=== PATIENT | male | born 1955 | race Caucasian/White ===

== ENCOUNTER 2018-05-19 19:03 | Emergency (ER) | payer BC ==
--- NOTE | 2018-05-19 19:37 | EDPHY ---
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 - Personal History Current Tetanus/Diphtheria Vaccine: Unsure Current Tetanus Diphtheria and Acellular Pertussis (TDAP): Unsure - Medical/Surgical History Hx Asthma: No Hx Chronic Respiratory Disease: No Hx Diabetes: No Hx Cardiac Disease: No Hx Renal Disease: No Hx Cirrhosis: No Hx Alcoholism: No Hx HIV/AIDS: No Hx Splenectomy or Spleen Trauma: No Other PMH: prostate CA prostectomy - Social History Smoking Status: Never smoked <Erin Ryan - Last Filed: 05/19/18 19:57> <Bart Nelson - Last Filed: 05/19/18 21:02> Time Seen by Provider: 05/19/18 19:26 HPI/ROS: CHIEF COMPLAINT: Bruising in groin HISTORY OF PRESENT ILLNESS: 63-year-old male with prostate cancer presents with bruising and groin. Onset of intermittent sharp stabbing right groin pain 1 month ago. 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 Just prior to arrival, he noted that there was bruising under his scrotum. No change in pain and no swelling. He has a an appointment to see a vascular surgeon next week. He is currently traveling from [place] on vacation. REVIEW OF SYSTEMS: complete 10 point ROS reviewed and is negative except for the noted elements in the HPI (Erin Ryan) - Physical Exam Exam: General Appearance: Alert, pleasant Eyes: Pupils equal and round, no conjunctival pallor or injection ENT, Mouth: Mucous membranes moist Neck: Normal inspection Respiratory: Lungs are clear to auscultation Cardiovascular: Regular rate and rhythm Gastrointestinal: Abdomen is soft and nontender Genitourinary: Ecchymosis just posterior to the scrotum bilaterally, no tenderness Neurological: A&O, nonfocal, normal gait Skin: Warm and dry Extremities: Normal inspection Vascular: 2+ femoral pulses Psychiatric: Mood and affect normal (Erin Ryan) Constitutional: Initial Vital Signs Temperature (C) 36.8 C 05/19/18 19:05 Heart Rate 74 05/19/18 19:05 Respiratory Rate 16 05/19/18 19:05 Blood Pressure 152/96 H 05/19/18 19:05 O2 Sat (%) 96 05/19/18 19:05 O2 Delivery Mode Room Air Allergies/Adverse Reactions: No Known Allergies Allergy (Unverified 05/19/18 19:09) Home Medications: Medication Instructions Recorded LORazepam [Ativan (*)] 1 mg PO Q4-8PRN PRN #30 tab 05/19/18 Medical Decision Making <Erin Ryan - Last Filed: 05/19/18 19:57> - Diagnostics Imaging: Discussed imaging studies w/ call center manager Radiologist <Bart Nelson - Last Filed: 05/19/18 21:02> ED Course/Re-evaluation: This patient presents with ecchymosis in the groin after diagnosis of iliac artery aneurysm. Concern for aneurysm rupture. CTA of the abdomen with bilateral lower extremity runoff ordered. The patient was signed over to Dr. Nelson at shift change, CT pending. (Erin Ryan) Other Provider: 20:00 I assumed care of this patient at shift change. 20:[address] Logan, radiologist. CTA abdomen with run-off shows patient has a 5x4cm aneurysm in the common iliac artery. 20:40 Reassessed patient. Discussed imaging results. Discussed aneurysms in depth with the patient and his . Recommended the patient follow up as soon as possible for surgical intervention vs. common iliac artery stent placement. Patient follows up in [place] and he states he was under the impression that this was a venous condition. He will follow up as scheduled with his vascular surgeon. Plan to d/c home in good condition with prescription for Ativan for anxiety. Return precautions discussed. He is comfortable with this plan. (Bart Nelson) - Data Points Laboratory Results: Laboratory Results 05/19/18 19:50 05/19/18 05/19/18 19:56 19:50 WBC 5.43 10^3/uL 10^3/uL (3.80-9.50) RBC 4.60 10^6/uL 10^6/uL (4.40-6.38) Hgb 14.0 g/dL g/dL (13.7-17.5) POC Hgb 14.6 gm/dL gm/dL (13.7-17.5) Hct 40.8 % % (40.0-51.0) POC Hct 43 % % (40-51) MCV 88.7 fL fL (81.5-99.8) MCH 30.4 pg pg (27.9-34.1) MCHC 34.3 g/dL g/dL (32.4-36.7) RDW 13.9 % % (11.5-15.2) Plt Count 222 10^3/uL 10^3/uL (150-400) MPV 10.3 fL fL (8.7-11.7) Neut % (Auto) 49.7 % % (39.3-74.2) Lymph % (Auto) 39.4 % % (15.0-45.0) [place] % (Auto) 7.6 % % (4.5-13.0) Eos % (Auto) 2.0 % % (0.6-7.6) Baso % (Auto) 1.1 % % (0.3-1.7) Nucleat RBC Rel Count 0.0 % % (0.0-0.2) Absolute Neuts (auto) 2.70 10^3/uL 10^3/uL (1.70-6.50) Absolute Lymphs (auto) 2.14 10^3/uL 10^3/uL (1.00-3.00) Absolute Monos (auto) 0.41 10^3/uL 10^3/uL (0.30-0.80) Absolute Eos (auto) 0.11 10^3/uL 10^3/uL (0.03-0.40) Absolute Basos (auto) 0.06 10^3/uL 10^3/uL (0.02-0.10) Absolute Nucleated RBC 0.00 10^3/uL 10^3/uL (0-0.01) Immature Gran % 0.2 % % (0.0-1.1) Immature Gran # 0.01 10^3/uL 10^3/uL (0.00-0.10) POC Sodium 143 mEq/L mEq/L (135-145) POC Potassium 4.0 mEq/L mEq/L (3.3-5.0) POC Chloride 108 mEq/L mEq/L (97-110) POC BUN 23 mg/dL mg/dL (7-23) POC Creatinine 1.0 mg/dL mg/dL (0.7-1.3) POC Glucose 93 mg/dL mg/dL (70-100) Point of Care Test Results: Chemistry 05/19/18 19:56 POC Sodium 143 mEq/L mEq/L (135-145) POC Potassium 4.0 mEq/L mEq/L (3.3-5.0) POC Chloride 108 mEq/L mEq/L (97-110) POC BUN 23 mg/dL mg/dL (7-23) POC Creatinine 1.0 mg/dL mg/dL (0.7-1.3) POC Glucose 93 mg/dL mg/dL (70-100) ISTAT H&H 05/19/18 19:56 POC Hgb 14.6 gm/dL gm/dL (13.7-17.5) POC Hct 43 % % (40-51) Departure <Erin Ryan - Last Filed: 05/19/18 19:57> <Bart Nelson - Last Filed: 05/19/18 21:02> - Departure Disposition: Home, Routine, Self-Care Clinical Impression: Ecchymosis, Iliac artery aneurysm Condition: Good Instructions: Ecchymosis (ED) Additional Instructions: Keep your appointment with the vascular surgeon as scheduled regarding your aneurysm. Be sure to follow up with a fellowship-trained vascular surgeon. You may wish to consider alternate interventions including stent placement with an interventional radiologist. Return to the nearest emergency immediately for any new or changing pain or further concerns. Take Ativan as prescribed as needed for anxiety. If you would like a recommendation for a vascular surgeon, I recommend Dr. Reilly Thompson, Vascular Surgeon at [facility]. Referrals: LYDIA FORTE [Other] - As per Instructions Prescriptions: LORazepam [Ativan (*)] 1 mg PO Q4-8PRN PRN #30 tab PRN Reason: Anxiety Report Scribed for: Bart Nelson Report Scribed by: Zeny Salmon Date of Report: 05/19/18 Time of Report: 20:44 <Bart Nelson - Last Filed: 05/19/18 21:02>
[2018-05-19] MEDS ORDERED: IOPAMIDOL (ISOVUE 370) 100 ML BTL IV ONE (20:00)
[2018-05-19 20:04] LABS: PLATELET COUNT 222 10^3/uL (150-400)
[2018-05-19] MEDS ORDERED: LORAZEPAM 1 MG PREPACK#4 BTL TAKEHOME ONE (20:59)
[2018-05-19 21:16] VITALS: BP 141/92
== END 2018-05-19 21:16 | disposition home or self-care (01) ==
DX: I72.3 Aneurysm of iliac artery (principal); Z85.46 Personal history of malignant neoplasm of prostate
CPT/HCPCS: 82435-PO; 82565-PO; 82947-PO; 84132-PO; 84295-PO; 84520-PO; 85014-PO; Q9967